=== PATIENT | male | born 1985 | race Caucasian/White ===

== ENCOUNTER 2022-09-04 08:31 | Outpatient (CLI) | payer OTHER, SELFPAY ==
--- NOTE | ~2022-09-04 | US_ITS ---
US abdomen limited INDICATION: Elevated liver function tests PROCEDURE: Realtime right upper abdominal ultrasound. COMPARISON: No prior studies for comparison. FINDINGS: The pancreas is normal without focal mass or pancreatic ductal dilation. Liver echotexture is normal without focal mass or intrahepatic biliary dilatation. There is normal directional flow i n the portal vein. The gallbladder is normal without stones, gallbladder wall thickening or pericholecystic fluid. Comm on bile duct measures 5.6 mm. No sonographic Barger's sign. IMPRESSION: 1: Normal limited abdominal ultrasound. Reviewed, dictated and finalized at location L. [employer]ACHINE [employer]ER
== END 2022-09-04 08:32 | disposition home or self-care (01) ==
DX: R79.89 Other specified abnormal findings of blood chemistry (principal)
CPT/HCPCS: 76705

== ENCOUNTER 2024-08-17 14:28 | Outpatient (CLI) | payer OTHER, SELFPAY ==
--- NOTE | ~2024-08-17 | MR_ITS ---
EXAMINATION: MR knee RT wo con DATE: 08/17/2024 15:06 INDICATION: Right knee pain TECHNIQUE: Magnetic resonance imaging (MRI) of the right knee was performed without intravenous contr ast. Sequences included coronal PD-weighted FSE, coronal PD-weighted FS FSE, sagittal T2-weighted FS E, sagittal PD-weighted FS FSE and axial PD weighted fat saturated FSE. COMPARISON: None. FINDINGS: Medial compartment: Medial meniscus is normal. Partial-thickness chondral ulceration involving greater than 50% the carti mira thickness with chondral surface regularity but without degenerative subchondral changes along th e anterior to central weightbearing medial femoral condyle. Partial-thickness chondral fissuring at t he central aspect of the medial tibial plateau extending onto the shoulder the intercondylar eminence . Lateral compartment: Lateral meniscus is normal. No deep chondral ulceration with underlying cortical irregularity and mil d subarticular edema-like signal change at the anterior weightbearing lateral femoral condyle. Partia l-thickness cartilage loss with smooth chondral surface along the posterior weightbearing lateral fem oral condyle. Partial-thickness chondral fissuring at the medial side of the lateral tibial plateau a long the shoulder the intercondylar eminence. Patellofemoral compartment: Deep chondral ulceration and fissuring at the patellar apical ridge and medial patellar facet with un derlying cortical irregularity and small central subchondral osteophytes. Partial-thickness chondral fissuring extends into the medial side of the lateral patellar facet. There is a large flat central s ubchondral osteophyte at the site of a deep chondral ulceration at the central aspect of the trochlea r groove and immediately adjacent lateral trochlea. Additional partial-thickness chondral ulceration and deep fissuring without degenerative subchondral changes at the medial trochlea. Ligaments and tendons: Anterior and posterior cruciate ligaments are normal. The medial collateral ligament and fibular dalton ateral ligament complex are normal. Mild tendinopathy without tear of the proximal patellar and dista l quadriceps tendons. The visualized medial and lateral hamstring tendons as well as the iliotibial b and are normal. Fluid: Small right knee joint effusion with mild synovitis at the suprapatellar pouch. No loose osteochondra l bodies identified. Osseous/other: Bone alignment is normal. There is some red marrow reexpansion the distal metadiaphyseal region of th e femur. Small low signal intensity bone island at the medial femoral condyle. No fracture or patholo gic marrow replacing process. Moderate size marginal osteophytes in all 3 compartments. IMPRESSION: 1. 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 Reviewed, dictated and finalized at location A. OL SUPERVISOR IMPRESSION: 1. Mild tricompartmental osteoarthritis with high-grade chondral malacia the pa tella, trochlea and at the anterior weightbearing lateral femoral condyle with additional moderate grade chondral malacia the medial femoral condyle and along the tibial plateaus.
== END 2024-08-17 14:29 | disposition home or self-care (01) ==
LOC: GOSHIMG 14:30
DX: M17.11 Unilateral primary osteoarthritis, right knee (principal); M22.41 Chondromalacia patellae, right knee
CPT/HCPCS: 73721